=== PATIENT | female | born 1975 | race Caucasian/White ===

== ENCOUNTER 2017-02-05 23:36 | Emergency (ER) | payer BC ==
[~2017-02-05] VITALS: Ht 170.2 cm; Wt 155.5 kg
[~2017-02-05 23:36] MED LIST: ALDOMET 250MG250 MG PO; COUMADIN 1010 MG/TAB PO; HCTZ 25MG TAB25 MG PO; JANTOVEN10 MG PO; SYNTHROID0.05 MG/TA PO
[2017-02-05] MEDS ORDERED: ASPIRIN 81M81 MG/TA2 PO (23:45)
[2017-02-05] MEDS ORDERED: ZYLOPRIM 100MG100 MG PO (23:45)
[2017-02-05] MEDS ORDERED: CALAN80 MG PO (23:46)
[2017-02-05] MEDS ORDERED: BACTRIM DS 8001 TAB PO (23:47)
[2017-02-06 00:39] LABS: BASO # 0.1 (0.0-0.2); BASO % 0.9 % (0.0-2.0); EOS # 0.2 (0.0-0.7); EOS % 2.1 % (0-4.0); GRAN # 8.2 (1.4-6.5); GRAN % 72.5 % (42.2-75.2); HEMATOCRIT 41.3 % (37.0-47.0); HEMOGLOBIN 13.6 g/dl (12.5-16.0); LYMPH # 1.3 (1.2-3.4); LYMPH % 11.1 % (20.0-51.0); MEAN CELL VOLUME 84 fl (80.0-100.0); MEAN CORPUSCULAR HEMOGLOBIN 28 pg (27.0-31.0); MEAN CORPUSCULAR HGB CONC 33 g/dl (33.0-37.0); MEAN PLATELET VOLUME 9.6 fl (7.4-10.4); MONO # 1.4 (0.1-0.6); MONO % 12.4 % (1.7-9.3); PLATELET COUNT 334 K/mm3 (130-400); WHITE BLOOD COUNT 11.3 K/mm3 (4.8-10.8)
[2017-02-06 01:38] LABS: ADJUSTED CALCIUM 9.1 mg/dL (8.4-10.2); ALBUMIN 3.2 gm/dL (3.5-5.0); BILIRUBIN,TOTAL 0.7 mg/dL (0.0-1.0); CALCIUM 8.5 mg/dL (8.4-10.2); CREATININE, serum 0.83 mg/dL (0.52-1.25); POTASSIUM 3.1 mmol/L (3.4-5.0); TOTAL PROTEIN 7.2 gm/dL (6.4-8.2)
[2017-02-06 02:17] LABS: C-REACTIVE PROTEIN 17.3 mg/dL (0.0-0.9)
[2017-02-06 07:18] VITALS: BP 126/68; PULSE 99; TEMP 98.6
== END 2017-02-06 07:31 | disposition short-term general hospital (02) ==
LOC: COL.ER 23:36
PROVIDERS: Emergency Medicine; Physician Assistant
DX: L02.31 Cutaneous abscess of buttock (principal); I10 Essential (primary) hypertension; E03.9 Hypothyroidism, unspecified; E66.9 Obesity, unspecified; M10.9 Gout, unspecified
CPT/HCPCS: J2543; J3370; J3480; J7030; J7050; J7120; Q9967

== ENCOUNTER → 2017-07-28 | Outpatient (CLI) | payer BC ==
[~2017-07-28] MED LIST changes: +ASPIRIN 81M81 MG/TA2 PO; +BACTRIM DS 8001 TAB PO; +CALAN80 MG PO; +ZYLOPRIM 100MG100 MG PO
== END ==
LOC: COL.VAS 07:58
DX: R22.41 Localized swelling, mass and lump, right lower limb (principal); M79.604 Pain in right leg

== ENCOUNTER 2021-08-17 10:11 | Emergency (ER) | payer BC ==
[~2021-08-17] VITALS: Ht 165.1 cm; Wt 154.5 kg
[2021-08-17 10:30] VITALS: BP 154/69; PULSE 70; TEMP 98.7
[2021-08-17] MEDS ORDERED: COUMADIN 3MG3 MG/TAB PO (11:51)
[2021-08-17] MEDS ORDERED: VERELAN240 MG PO (11:52)
[2021-08-17] MEDS ORDERED: K-DUR20 MEQ PO (11:53)
[2021-08-17] MEDS ORDERED: ALDACTONE50 MG PO (11:53)
[2021-08-17] MEDS ORDERED: ASPIRIN 81M81 MG/TA2 PO (11:53)
[2021-08-17] MEDS ORDERED: VITAMIN C500 MG PO (11:54)
[2021-08-17] MEDS ORDERED: PROFE180 MG PO (11:54)
[2021-08-17] MEDS ORDERED: MERIBIN5 MG (11:55)
[2021-08-17] MEDS ORDERED: MASON NATURAL1200 MG PO (11:55)
[2021-08-17] MEDS ORDERED: CEPHALEXIN500 M1 PO (12:06)
== END 2021-08-17 12:30 | disposition home or self-care (01) ==
LOC: COL.ER 10:11
DX: R05.9 Cough, unspecified (principal)